=== PATIENT | female | born 1950 | race Caucasian/White ===

== ENCOUNTER 2025-07-16 11:16 | Outpatient (CLI) | payer MEDICARE, SELFPAY ==
--- NOTE | 2025-07-16 12:19 | P.ANES_ITS ---
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
--- NOTE | 2025-07-16 12:19 | W.ANESCHARGE ---
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
--- NOTE | 2025-07-16 12:46 | P.ANES_ITS ---
Anesthesia Charges Start Date/Time Anesthesia Start Date: 07/16/25 Anesthesia Start Time: 11:57 Stop Date/Time Anesthesia Stop Date: 07/16/25 Anesthesia Stop Time: 12:17 Summary Extremes of Age - Over 70 or under 1: MDA Coding CPT Codes CPT Codes: ANES UPR GI NDSC PX NOS - 28205 ([id number]) QK - SHEET ROCK TAPER 2-4 CNCRNT ANES PROC, QX - PRIVACY COMPLIANCE MANAGER SVC W/ MD MED DIRECTION, P2 - PATIENT W/MILD SYST DISEASE Additional Codes: Summary - Extremes of Age - Over 70 or under 1: ULYSSES ([id number])
== END 2025-07-16 11:17 | disposition home or self-care (01) ==
LOC: OP CLINIC 11:23
PROVIDERS: PCP Internal Medicine; Visit Provider Internal Medicine Gastroenterology
DX: R10.13 Epigastric pain (principal); R63.4 Abnormal weight loss; R19.7 Diarrhea, unspecified; K31.89 Other diseases of stomach and duodenum
CPT/HCPCS: 00731; 43239; 88305; 99100; J2704; J3490